=== PATIENT | male | born 1985 | race Caucasian/White ===

== ENCOUNTER 2025-01-18 10:41 | Emergency (ER) | payer OTHER, SELFPAY ==
--- OUTSIDE RECORDS SUMMARY | 2025-01-18 10:44 | XMS_ITS | Encounter Summary ---
Author Organization [facility] Address [address] [place] [address] Care Team Providers Care Bookkeeping Machine Mechanic Name Role Phone Killian Miles PA-C Unavailable [phone] Killian Miles PA-C Primary Care Provider [phone] Yanna Lomeli APRN DRILL DOCTOR Unavailable [phone] Encounter Details Date Type Department Care Team (Late st Contact Info) Description 07/22/2023 [facility] Medical Advice [address] [address] Jacqueline Mckinney Social History Tobacco Use Types Packs/Day Years Used Date Smoking Tobacco: Never Passive Smoke Exposure: Never Smokeless Tobacco: Never Alcohol Use Standard Drinks/Week Comments Yes 0 (1 standard drink = 0.6 oz pur e alcohol) maybe 1-2 x yeear Social Connection and Isolation Panel Answer Date Recorded Frequency of Communication with Friends and Fami ly Not on file 04/17/2023 How often do you get together with friends or re latives? Once a week 04/17/2023 Attends Sabianism Services Not on file 04/17 Active Member of Clubs or Organizations Not on f ile 04/17/2023 Attends Club or Organization Meetings Not on kvng e 04/17/2023 Marital Status Not on file 04/17/2023 PHQ-2 Answer Date Recorded PHQ-2 Score 0 07/22/2023 [facility] Occupat ional [facility] - Occupational Stress Questionnaire Answer Date Recorded Do you feel stress - tense, restless, nervous, or anxious, or unable to sleep at night because your mind is troubled all the time - these days? Patient declined 04/17/2023 Exercise Vital Sign Answer Date Recorde d On average, how many days pe r week do you engage in moderate to strenuous exercise (like a brisk walk)? 0 days 04/17/2023 On average, how many minutes do you engage in exercise at this level? 0 min 04/17/2023 Adolescent Education Answer Date Record ed Getting School Help Needed Not on file 12/22 Food Insecurity Answer Date Recorded Within the past 12 months, d id you worry that your food would run out before you got money to buy more? No 04/17/2023 Within the past 12 months, d id the food you bought just not last and you didn t have money to get more? No 04/17/2023 Housing Stability Answer Date Recorded Do you have housing? (Housin g is defined as stable permanent housing and does not include staying outside in a car, in a tent, in an abandoned building, in an overnight senior care, or couch-surfing.) Yes 04/17/2023 Are you worried about losing your housing? No 04/17/2023 Financial Resource Strain Answer Date R ecorded Within the past 12 months, h ave you or your family members you live with been unable to get utilities (heat, electricity) when it was really needed? No 04/17/2023 Transportation Needs Answer Date Record ed Within the past 12 months, h as lack of transportation kept you from medical appointments, getting your medicines, non-medical meetings or appointments, work, or from getting things that you need? No 04/17/2023 Interpersonal Safety Answer Date Record ed Do you feel physically and e motionally safe where you currently live? Yes 04/20/2023 Within the past 12 months, h ave you been hit, slapped, kicked or otherwise physically hurt by someone? No 04/20/2023 Within the past 12 months, h ave you been humiliated or emotionally abused in other ways by your partner or ex-partner? No 04/20/2023 Sex and Gender Information Value Date Recorded Sex Assigned at Not on file Legal Sex Male 4:[address] OF [address] CLERK Gender Identity Not on file Sexual Orientation Not on file Occupation Industry Job Start Date Job End Date Not on file Not on file Not on file Not on file documented as of this encounter Plan of Treatment Upcoming Encounters Date Type Department Care Team (Late st Contact Info) Description 04/24/2025 4:[address] CLERK Office Visit [facility] [place] [address] [address] Killian Miles PA-C [address] [address] documented as of this encounter Visit Diagnoses Not on filedocumented in this encounter Additional Health Concerns Assessment Noted Time PHQ-9 Depression Total Score: 0 05/01/19 18 7:[address] CLERK documented as of this encounter Care Teams Bookkeeping Machine Mechanic Relationship Specialty Start Date End Date Killian Miles PA-C [address] [address] PCP - General Physician Grain Buyer 03/20/19 Killian Miles PA-C [address] [address] Assigned PCP 04/17/18 Yanna Lomeli APRN DRILL DOCTOR [address] [place] [address], [facility] [address] [place], [place] [address] Assigned Surgical Provider 07/29/23 documented as of this encounter
--- OUTSIDE RECORDS SUMMARY | 2025-01-18 10:44 | XMS_ITS | Encounter Summary ---
Author Organization [facility] Address [address] [place] [address] Care Team Providers Care Deli Cook Name Role Phone Killian Miles PA-C Unavailable [phone] Killian Miles PA-C Primary Care Provider [phone] Dhaval Park PA-C Unavailable [phone] Yanna Lomeli DIRECTOR OF DEVELOPMENT AND MARKETING PLATER HELPER Unavailable [phone] Encounter Details Date Type Department Care Team (Late st Contact Info) Description 07/03/2021 [facility] Medical Advice [facility] [address] [address] Adrienne Julian CMA Social History Tobacco Use Types Packs/Day Years Used Date Smoking Tobacco: Never Smokeless Tobacco: Never Alcohol Use Standard Drinks/Week Comments Yes 0 (1 standard drink = 0.6 oz pur e alcohol) maybe 1-2 x yeear PHQ-2 Answer Date Recorded PHQ-2 Score 0 04/24/2021 Sex and Gender Information Value Date Recorded Sex Assigned at Not on file Legal Sex Male 4:13 AM INSEAMER Gender Identity Not on file Sexual Orientation Not on file Occupation Industry Job Start Date Job End Date Not on file Not on file Not on file Not on file COVID-19 Exposure Response Date Recorded In the last 10 days, have yo u been in contact with someone who was confirmed or suspected to have Coronavirus/COVID-19? No / Unsure 07/03/2021 8:19 AM CDT documented as of this encounter Plan of Treatment Upcoming Encounters Date Type Department Care Team (Late st Contact Info) Description 04/24/2025 4:30 PM INSEAMER Office Visit [facility] [place] [address] [phone] Killian Miles PA-C [address] [address] documented as of this encounter Visit Diagnoses Not on filedocumented in this encounter Additional Health Concerns Infection Onset Date Last Indicated Resolved Time Rule Out COVID-19 02/03/2022 02/03/2022 02/04/2022 12:00 AM INSEAMER Influenza 02/03/2022 02/03/2022 02/10/2022 11:4 0 PM INSEAMER Assessment Noted Time PHQ-9 Depression Total Score: 0 05/01/19 18 7:56 AM INSEAMER documented as of this encounter Care Teams Deli Cook Relationship Specialty Start Date End Date Killian Miles PA-C [address] [address] PCP - General Physician Paper Cup Handle Machine Operator 03/20/19 Killian Miles PA-C [address] [address] Assigned PCP 04/17/18 Dhaval Park PA-C [address] [facility] [address] [place] [address] Assigned Neuroscience Provider 07/13/21 01/15/23 Yanna Lomeli APRN PLATER HELPER [address] [place] [address], [facility] [address] [place] [address] Assigned Surgical Provider 07/29/23 documented as of this encounter
--- OUTSIDE RECORDS SUMMARY | 2025-01-18 10:44 | XMS_ITS | Encounter Summary ---
Author Organization [facility] Address [address] [place] [address] Care Team Providers Care Manager Sterile Name Role Phone Rhys Antunez MD Primary Care Provider [phone] Anastacio Garcia MD Primary Care Provider [phone] Anastacio Garcia MD Unavailable [phone] Killian Miles PA-C Unavailable [phone] Killian Miles PA-C Unavailable [phone] Anastacio Garcia MD Unavailable [phone] Killian Miles PA-C Primary Care Provider [phone] Shaq Frank MD Unavailable Dhaval Park PA-C Unavailable [phone] Yanna Lomeli APRN [facility] Unavailable [phone] Encounter Details Date Type Department Care Team (Late st Contact Info) Description 10/26/2008 Clinic Report (Fur Grader) [address] [phone] Killian Crowley MD NO INFO AVAILABLE 01/09/2022 Social History Tobacco Use Types Packs/Day Years Used Date Smoking Tobacco: Never Assessed Sex and Gender Information Value Date Recorded Sex Assigned at Not on file Legal Sex Male 4:13 AM ADJUNCT BUSINESS INSTRUCTOR Gender Identity Not on file Sexual Orientation Not on file documented as of this encounter Progress Notes * Killian Crowley N - 01/30/2012 7:31 AM CST CC/HPI: 3/4 lump in left axilla. rt is ok. does not feel ill. He presented with swelling. lump under armpit left arm. It is located in a generalized area. The symptom is described as painful. The color is described as flesh-colored. The symptom is sudden in onset. The symptom started yesterday. Episodes last 1 day. Episodes occur in the summer. The frequency of episodes is daily. The complaint is moderate. Current Medication: IBU Oral and Oral. ROS: Constitutional: The patient denied chills, diaphoresis and fatigue. Ears/Nose/Throat/Neck: The patient denied cerumen, nosebleed and cosmetic deformity. Cardiovascular: The patient denied arrhythmia, chest pain/pressure and claudication. Respiratory: The patient denied asthma, chest congestion and chest tightness. Hematologic/Lymphatic: The patient denied abnormal bleeding and bruising, abnormal ecchymoses and anemia. Vital Signs: data collected on 10/26/2008 04:19:29 PM by Dena Lamb weight is 237 pounds 4.00 ounces clothed sitting heart rate is 64 bpm regular blood pressure at Left Arm while Sitting is 126/80 mmHg PE: AXILLA=1.3 CM NODULE SUPERFICIAL DISCUSSED RX, WARM DOAKS. DISUCSSED IF WORSENS NEEDS RECHECK AND DRAINAGE IF ABSCESS DEVELOPS Constitutional: GENERAL APPEARANCE: Overall: well nourished, well developed and in no acute distress. Ears/Nose/Throat: EXTERNAL EAR: Overall: normal appearance; EXTERNAL NOSE: Overall: benign appearance, no masses and non-tender. Musculoskeletal: LEFT UPPER EXTREMITY: Palpation - left shoulder: a normal exam. Dx: 782.2 Localized swelling/mass, superficial Rx: Bactroban 2 % Ointment, TOP, TID, 10 days, for a total of 45 gm, start on October 26, 2008, end on November 04, 2008. Keflex 500 mg Cap, 1 Capsule(s), PO, TID, 10 days, for a total of 30, start on October 26, 2008, end on November 04, 2008. Plan: MEDS ORDERED, WARM SOAKS. RTC IF WORSENS OR OT RESOLVED BY 10-14 DAYS Patient Instructions: None documented in this encounter Plan of Treatment Upcoming Encounters Date Type Department Care Team (Late st Contact Info) Description 04/24/2025 4:30 PM ADJUNCT BUSINESS INSTRUCTOR Office Visit [facility] [address] [place] [address] Killian Miles PA-C [address] [place], [place] [id number] documented as of this encounter Visit Diagnoses Not on filedocumented in this encounter Additional Health Concerns Infection Onset Date Last Indicated Resolved Time Rule Out COVID-19 02/03/2022 02/03/2022 02/04/2022 12:00 AM ADJUNCT BUSINESS INSTRUCTOR Influenza 02/03/2022 02/03/2022 02/10/2022 11:4 0 PM ADJUNCT BUSINESS INSTRUCTOR documented as of this encounter Care Teams Manager Sterile Relationship Specialty Start Date End Date Rhys Antunez MD [address] [place] [address] PCP - General Internal Medicine 12/21/11 05/24/16 Anastacio Garcia MD [address] [place] [address] PCP - General Internal Medicine 05/25/16 03/16/19 Anastacio Garcia MD [address] [place] [address] PCP - Assigned PCP 05/10/16 04/16/18 Killian Miles PA-C [address] [facility] [address] PCP - Assigned PCP 04/17/18 05/10/18 Killian Miles PA-C [address] [address] PCP - General Physician Coffin Maker 03/20/19 Killian Miles PA-C [address] [place] [address] Assigned PCP 04/17/18 Anastacio Garcia MD [address] [facility] [place] [address] Assigned PCP 05/10/16 04/16/18 Shaq Frank MD [address] [facility] [address] [place], [place] [address] Assigned Cancer Care Provider 12/29/19 09/17/20 Dhaval Park PA-C [address] [address] Assigned Neuroscience Provider 07/13/21 01/15/23 Yanna Lomeli APRN GRANITE SANDBLASTER APPRENTICE [address] [facility], [facility] [address] [place] [address] Assigned Surgical Provider 07/29/23 documented as of this encounter
--- OUTSIDE RECORDS SUMMARY | 2025-01-18 10:44 | XMS_ITS | Encounter Summary ---
Author Organization [facility] Address [address] [place] [address] Care Team Providers Care Steel Rule Die Maker Name Role Phone Killian Miles PA-C Unavailable [phone] Killian Miles PA-C Primary Care Provider [phone] Dhaval Park PA-C Unavailable [phone] Yanna Lomeli APRN [facility] Unavailable [phone] Encounter Details Date Type Department Care Team (Late st Contact Info) Description 07/10/2021 [facility] Sleep [address] [address] Dhaval Park PA-C [address] [facility] [address] [place] [address] Social History Tobacco Use Types Packs/Day Years Used Date Smoking Tobacco: Never Smokeless Tobacco: Never Alcohol Use Standard Drinks/Week Comments Yes 0 (1 standard drink = 0.6 oz pur e alcohol) maybe 1-2 x yeear PHQ-2 Answer Date Recorded PHQ-2 Score 0 04/24/2021 Sex and Gender Information Value Date Recorded Sex Assigned at Not on file Legal Sex Male 4:[address] MECHANICAL ENGINEER Gender Identity Not on file Sexual Orientation [...] st Contact Info) Description 04/24/2025 4:[address] MECHANICAL ENGINEER Office Visit [facility] [place] [address] [address] Killian Miles PA-C [address] [place] [address] documented as of this encounter Visit Diagnoses Not on filedocumented in this encounter Additional Health Concerns Infection Onset Date Last Indicated Resolved Time Rule Out COVID-19 02/03/2022 02/03/2022 02/04/2022 12:[address] MECHANICAL ENGINEER Influenza 02/03/2022 02/03/2022 02/10/2022 11:[address] MECHANICAL ENGINEER Assessment Noted Time PHQ-9 Depression Total Score: 0 05/01/19 18 7:[address] MECHANICAL ENGINEER documented as of this encounter Care Teams Steel Rule Die Maker Relationship Specialty Start Date End Date Killian Miles PA-C [address] [address] PCP - General Physician Paint Laboratory Technician 03/20/19 Killian Miles PA-C [address] [address] Assigned PCP 04/17/18 Dhaval Park PA-C [address] [facility] [address] [place] [address] Assigned Neuroscience Provider 07/13/21 01/15/23 Yanna Lomeli APRN POSTAL SORTING OFFICER [address] [place] [address], [facility] [address] [place] [address] Assigned Surgical Provider 07/29/23 documented as of this encounter
--- OUTSIDE RECORDS SUMMARY | 2025-01-18 10:44 | XMS_ITS | Clinical Summary ---
Author Organization [facility] Address [address] [place] [address] Care Team Providers Care Asbestos Removal Worker Name Role Phone Pcp, No Primary Care Provider Unavailabl e Allergies No known active allergies Medications emtricitabine-t enofovir, 200-300 mg, (TRUVADA) 200-300 mg tablet Take 1 tablet by mouth once daily. 0 2 Active hydrocortisone (PROCTOSOL HC) 2.5 % rectal cream Apply 1 g topically to affected area(s) 3 times daily. 1 Tube 2 2 Active Active Problems Problem Noted Date Diagnosed Date External hemorrhoids without mention of complica tion 12/21/2011 Social History Tobacco Use Types Packs/Day Years Used Date Smoking Tobacco: Never Tobacco Cessation:Counseling Given: No Alcohol Use Standard Drinks/Week Comments No 0 (1 standard drink = 0.6 oz pur e alcohol) Sex and Gender Information Value Date Recorded Sex Assigned at Not on file Legal Sex Male 8:39 AM ELECTRONIC SCALE TESTER Gender Identity Not on file Sexual Orientation Not on file Obstetrics History Last Filed Vital Signs Vital Sign Reading Time Taken Comments Blood Pressure 140/82 12/21/2011 5:46 PM CDT Pulse 70 12/21/2011 5:46 PM CDT Temperature - - Respiratory Rate - - Oxygen Saturation - - Inhaled Oxygen Concentration - - Weight 123.3 kg (271 lb 12.8 oz) 12/21/2011 5:46 PM CDT Height - - Body Mass Index - - Plan of Treatment Health Maintenance Due Date Last Done Comments Tetanus booster 11/27/1994 Depression screening for age 12+ 1995 HIV for age 15-65 11/27/1998 BMI (ht and wt on same day) for age 18+ 11/27/2001 Hepatitis C screening for ag e 18-79 11/27/2001 Hepatitis B series for 19+ ( 1 of 3 - 19+ 3-dose series) 11/27/2002 HPV series for age 9-45 (1 - 3-dose SCDM series) 11/27/2010 Lipids for age 35-44 11/27/2018 Influenza Vaccine (#1) 2024 RSV vaccine for adults or (1 - 1-dose 75+ series) 11/27/2058 Pneumococcal series for age 6-49 Aged Out No longer eligible based on patient's age to complete this topic Care Teams Asbestos Removal Worker Relationship Specialty Start Date End Date Pcp, No . PCP - General 12/21/11
--- OUTSIDE RECORDS SUMMARY | 2025-01-18 10:44 | XMS_ITS | Clinical Summary ---
Author Organization [facility] Address [address] [place] [address] Care Team Providers Care Lay Out Worker Name Role Phone Killian Miles PA-C Unavailable [phone] Killian Miles PA-C Primary Care Provider [phone] Yanna Lomeli APRN ADVERTISING STRATEGIST Unavailable [phone] Allergies No known active allergies Medications triamcinolone (KENALOG) 0.1 % external creamIndication s:Eczema, unspecified type Apply topically 2 times daily X 1-2 weeks as needed; take a week break after 2 weeks 80 g 04/24/19 22 Active traZODone (DESYREL) 50 MG tabletIndicatio ns:Sleeping difficulty Take 1-2 tablets (50-100 mg) by mouth at bedtime. 90 tablet 03/28/19 25 Active omeprazole (PRILOSEC) [address] capsuleIndicati ons:Gastroesoph ageal reflux disease, unspecified whether esophagitis present Take 1 capsule (20 mg) by mouth daily. 90 capsule 3 04/20/19 25 Active ZEPBOUND 12.5 MG/0.5ML prefilled penIndications: Morbid obesity (H) INJECT 12.5MG UNDER THE SKIN EVERY 7 DAYS 6 mL 01/06/20 25 Active tirzepatide-Kan ght Management (ZEPBOUND) 12.5 MG/0.5ML prefilled penIndications: Morbid obesity (H) INJECT 12.5MG UNDER THE SKIN EVERY 7 DAYS 6 mL 10/10/19 025 Discontinued Active Problems Problem Noted Date Diagnosed Date Sleeping difficulty 04/20/2024 Left ureteral stone 07/22/2023 History of 2019 novel coronavirus disease (COVID -19) 04/24/2021 Morbid obesity 04/08/2020 Status post knee surgery 03/23/2018 Right knee pain 02/22/2018 Complete tear of right ACL, subsequent encounter 02/22/2018 Pain in thoracic spine 04/30/2015 TMJ (temporomandibular joint syndrome) 5 Vitamin D deficiency 08/07/2013 Overview (12/07/2014): Problem list name updated by automated process. Provider to review CHANDNI (obstructive sleep apnea) 11/11/2012 HTN (hypertension) 05/10/2012 GERD (gastroesophageal reflux disease) 3 Kidney stone 04/01/2012 CARDIOVASCULAR SCREENING; LDL GOAL LESS THAN 160 01/15/2011 Resolved Problems Problem Noted Date Diagnosed Date Resolved Date Aftercare for anterior cruci ate ligament (ACL) repair 04/05/2018 03/16/2019 Overweight 04/29/2016 04/08/2020 Pain in joint, upper arm 03/16/2012 Elbow fracture 03/15/2012 04/28/2012 Overweight (BMI 25.0-29.9) 01/15/2011 0 04/08/2020 Encounters Date Type Department Care Team Description 01/05/[address] [address] Killian Miles PA-C Medication Refill 12/01/2024 6:40 PM CDT Office Visit [facility] [address] [place] [address] Yoana Ragland PA-C Strep throat (Primary Dx); Acute sore throat 12/01/2024 Travel from Last 3 Months Immunizations Immunization Administration Dates Next Due Anthrax 05/17/2005,01/04/2005 COVID-19 Monovalent 18+ (Moderna) 05/09/2020,06/2020 COVID-19 Monovalent Booster 18+ (Moderna) 07/03/2021 Flu, Unspecified 01/04/2005 HEPA 11/15/2004,07/13/2004,08/15/2003 HepB 11/15/2004,07/13/2004,08/15/2003 Influenza (IIV3) PF 01/04/2005 Influenza (intradermal) 04/01/2012 Influenza Vaccine >6 months,quad, PF ,12/09/2020,11/14/2019,2018,01/03/2018,12/31/2016,04/28/2016 Influenza Vaccine IM Ages 6- 35 Months 4 Valent (PF) 01/27/2006 Influenza, Split Virus, Triv alent, Pf (Fluzone\Fluarix) 12/21/2023 MMR (MMRII) 08/15/2003,10/06/1993,05/22/1985 Mantoux Tuberculin Skin Test 10/05/2006,12/17/19 05,07/31/2004 Poliovirus, inactivated (IPV) 08/15/2003 Small Pox (Vaccinia) 01/04/2005 TD,PF 7+ (Tenivac) 07/13/2004 TDAP (Adacel,Boostrix) 06/22/2023 TDAP Vaccine (Adacel) 03/24/2013 Typhoid IM 11/15/2004 Family History Medical History Relation Comments Diabetes Father Neurologic Disorder Father RLS C.A.D. Maternal Grandmother CO at age 6 6 Breast Cancer Mother Diabetes Mother Obesity Mother Respiratory Mother CHANDNI C.A.D. Paternal Grandfather CHF ag e 79 Relation Status Comments Father Alive Maternal Grandfather Alive Maternal Grandmother Mother Alive Paternal Grandfather Paternal Grandmother Alive Sister Alive Social History Tobacco Use Types Packs/Day Years Used Date Smoking Tobacco: Never Passive Smoke Exposure: Never Smokeless Tobacco: Never Tobacco Cessation:Counseling Given: Not Answered Alcohol Use Standard Drinks/Week Comments Yes 0 (1 standard drink = 0.6 oz pur e alcohol) maybe 1-2 x yeear Social Connection and Isolation Panel Answer Date Recorded Frequency of Communication with Friends and Fami ly Not on file 04/16/2024 How often do you get together with friends or re latives? Never 04/16/2024 Attends Pentecostal Services Not on file 04/16 Active Member of Clubs or Organizations Not on f ile 04/16/2024 Attends Club or Organization Meetings Not on kvng e 04/16/2024 Marital Status Not on file 04/16/2024 PHQ-2 Answer Date Recorded PHQ-2 Score 0 04/20/2024 [facility] [place] [facility] Occupat ional [facility] - Occupational Stress Questionnaire Answer Date Recorded Do you feel stress - tense, restless, nervous, or anxious, or unable to sleep at night because your mind is troubled all the time - these days? Patient declined 04/16/2024 Exercise Vital Sign Answer Date Recorde d On average, how many days pe r week do you engage in moderate to strenuous exercise (like a brisk walk)? 0 days 04/16/2024 On average, how many minutes do you engage in exercise at this level? 0 min 04/16/2024 Adolescent Education Answer Date Record ed Getting School Help Needed Not on file 12/22 Food Insecurity Answer Date Recorded Within the past 12 months, d id you worry that your food would run out before you got money to buy more? No 04/16/2024 Within the past 12 months, d id the food you bought just not last and you didn t have money to get more? No 04/16/2024 Housing Stability Answer Date Recorded Do you have housing? (Geovannyin g is defined as stable permanent housing and does not include staying outside in a car, in a tent, in an abandoned building, in an overnight residential, or couch-surfing.) Yes 04/16/2024 Are you worried about losing your housing? No 04/16/2024 Financial Resource Strain Answer Date R ecorded Within the past 12 months, h ave you or your family members you live with been unable to get utilities (heat, electricity) when it was really needed? No 04/16/2024 Transportation Needs Answer Date Record ed Within the past 12 months, h as lack of transportation kept you from medical appointments, getting your medicines, non-medical meetings or appointments, work, or from getting things that you need? 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 Gender Identity Not on file Sexual Orientation Not on file Occupation Industry Job Start Date Job End Date Not on file Not on file Not on file Not on file Last Filed Vital Signs Vital Sign Reading Time Taken Comments Blood Pressure 120/74 12/01/2024 6:39 PM CDT Pulse 77 12/01/2024 6:39 PM CDT Temperature 36.8 C (98.3 F) 12/01/2024 6:39 PM CDT Respiratory Rate 16 12/01/2024 6:39 PM CDT Oxygen Saturation 96% 12/01/2024 6:39 PM CDT Inhaled Oxygen Concentration - - Weight 118.7 kg (261 lb 9.6 oz) 12/01/2024 6:39 PM CDT Height 177.8 cm (5' 10) 12/01/2024 6:39 PM CDT Body Mass Index 37.54 12/01/2024 6:39 PM CDT Plan of Treatment Upcoming Encounters Date Type Department Care Team (Late st Contact Info) Description 04/24/2025 4:30 PM MIDDLE SCHOOL MATH TEACHER Office Visit [facility] [address] [place] [address] Killian Miles PA-C [address] [place] [address] Health Maintenance Due Date Last Done Comments COVID-19 VACCINE ( season) 2024 07/03/2021, 05/09/2020, 04/11/2020 INFLUENZA VACCINE (#1) 2024 , 01/27/2023, 12/09/2020, Additional history exists ANNUAL REVIEW OF HM ORDERS 04/20/202504/20, 04/20/2023, 04/09/2022, Additional history exists BMP 04/20/2025 04/20/2024, 07/06, 04/20/2023, Additional history exists YEARLY PREVENTIVE VISIT 04/20/2025 04/20/19 25, 04/20/2023, 04/09/2022, Additional history exists DIABETES SCREENING 04/20/2027 04/20/2024, 0 04/20/2024, 07/20/2023, Additional history exists ADVANCE CARE PLANNING 04/20/2029 04/20/2024 , 04/20/2023, 03/24/2018 LIPID 04/20/2029 04/20/2024, 04/08, 04/24/2021, Additional history exists DTAP/TDAP/TD VACCINE (4 - Td or Tdap) 06/21/2033 06/22/2023, 03/24/2013, 07/13/2004 ZOSTER VACCINE (1 of 2) 11/27/2033 HEPATITIS B VACCINE Completed 11/15/2004, 07/13/2004, 08/15/2003 HEPATITIS C SCREENING Completed 06/10/2015 HIV SCREENING Completed 06/10/2015 PHQ-2 (once per calendar year) Completed 04/20/2024, 07/22/2023, 04/20/2023, Additional history exists HPV VACCINE (No Doses Required) Completed MENINGITIS VACCINE Aged Out No longer eligible based on patient's age to complete this topic PNEUMOCOCCAL VACCINE: PEDIATRICS (0 to 5 YEARS) AND AT-RISK PATIENTS (6 to 49 YEARS) Aged Out No longer eligible based on patient's age to complete this topic Medical Devices Implanted Type Area Experimental Display Builder Device Identifier Shelf Expiration Date Model / Serial / Lot Imp Scr Arthrex Biocomposite Interference 6x23mm Ar-[id number] Implanted:Qty: 1 on 03/23/2018 by Cheng Kumari MD at [facility] Metallic Hardware/An chor Right: Knee [employer] 11/06/2019 AR-1360C / / [id number] Imp Scr Arthrex Can [id number] Ar-[id number] Implanted:Qty: 1 on 03/23/2018 by Cheng Kumari MD at [facility] Metallic Hardware/An chor Right: Knee [employer] 10/05/2021 AR-1370E / / [id number] Imp Scr Arthrex Can Full Thrd [id number] Ar-[id number] Implanted:Qty: 1 on 03/23/2018 by Cheng Kumari MD at [facility] Metallic Hardware/An chor Right: Knee [employer] 06/05/2022 AR-1380T / / [id number] Imp Scr Arthrex Biocomposite Interference 6x23mm Ar-1360c Implanted:Qty: 1 on 03/23/2018 by Cheng Kumari MD at [facility] Metallic Hardware/An chor Right: Knee [employer] 06/06/2019 AR-1360C / / [id number] Stent Ureteral Polaris Ultra [id number] Implanted:Qty: 1 on 01/11/2018 by Shaq Frank MD at [facility] Stent Right: Ureter [employer] 10/17/2020 [id number] / / [id number] Procedures Procedure Name Priority Date/Time Associated Diagnosis Comments STREPTOCOCCUS A RAPID SCREEN W REFELX TO PCR Routine 12/01/2024 6:46 PM CDT Acute sore throat HEMOGLOBIN A1C Routine 04/20/2024 3:32 PM MIDDLE SCHOOL MATH TEACHER Morbid obesity (H) LIPID REFLEX TO DIRECT LDL PANEL Routine 04/20/2024 3:32 PM MIDDLE SCHOOL MATH TEACHER Morbid obesity (H) COMPREHENSIVE METABOLIC PANEL Routine 04/20/2024 3:32 PM MIDDLE SCHOOL MATH TEACHER Morbid obesity (H) from Last 3 Months or Most Recently Relevant to Health Maintenance Results * (ABNORMAL) Streptococcus A Rapid Screen w/Reflex to PCR - Clinic Collect (12/01/2024 6:46 PM CDT) Group A Strep antigen Positive(A ) Negative 12/01/2024 6:56 PM CDT [facility] Swab STRUCTURE OF ANTERIOR REGION OF NECK / Unknown Non-blood Collection / Unknown 12/01/2024 6:46 PM CDT 12/01/2024 6:49 PM CDT Khristopher M Urbano PA-C LAB - MICRO GENERAL ORD ERABLES Final Result Performing Organization Address City/[facility]/ZIP Co de Phone Number [facility] [address] [facility] Lab (no room number, 1st floor of clinic) [place] [address], [facility] * (ABNORMAL) Lipid panel reflex to direct LDL Fasting (04/20/2024 3:32 PM MIDDLE SCHOOL MATH TEACHER) Cholesterol 173 <200 mg/dL 04/21/2024 2:11 PM MIDDLE SCHOOL MATH TEACHER [facility] Triglycerides 176(H) <150 mg/dL 04/21/2024 2:11 PM MIDDLE SCHOOL MATH TEACHER [facility] Direct Measure HDL 28(L) >=40 mg/dL 04/21/2024 2:11 PM MIDDLE SCHOOL MATH TEACHER [facility] LDL Cholesterol Calculated 110(H) <100 mg/dL 04/21/2024 2:11 PM MIDDLE SCHOOL MATH TEACHER [facility] Non HDL Cholesterol 145(H) <130 mg/dL 04/21/2024 2:11 PM MIDDLE SCHOOL MATH TEACHER [facility] Patient Fasting > 8hrs? Yes 04/21/2024 2:11 PM MIDDLE SCHOOL MATH TEACHER [facility] Blood BLOOD SPECIMEN / Unknown Venipuncture / Unknown 04/20/2024 3:32 PM MIDDLE SCHOOL MATH TEACHER 04/20/2024 3:32 PM MIDDLE SCHOOL MATH TEACHER Narrative [facility] - 04/21/2024 2:11 PM MIDDLE SCHOOL MATH TEACHER Cholesterol Desirable: < 200 mg/dL Borderline High: 200 - 239 mg/dL High: >= 240 mg/dL Triglycerides Normal: < 150 mg/dL Borderline High: 150 - 199 mg/dL High: 200-499 mg/dL Very High: >= 500 mg/dL Direct Measure HDL Female: >= 50 mg/dL Male: >= 40 mg/dL LDL Cholesterol Desirable: < 100 mg/dL Above Desirable: 100 - 129 mg/dL Borderline High: 130 - 159 mg/dL High: 160 - 189 mg/dL Very High: >= 190 mg/dL Non HDL Cholesterol Desirable: < 130 mg/dL Above Desirable: 130 - 159 mg/dL Borderline High: 160 - 189 mg/dL High: 190 - 219 mg/dL Very High: >= 220 mg/dL Killian Miles PA-C LAB - BLOOD ORDERABLES Final R esult [facility] [address] [place] [address], [place] [facility] [address] [facility], [address] [place] [address], [facility] * Hemoglobin A1c (04/20/2024 3:32 PM MIDDLE SCHOOL MATH TEACHER) Estimated Average Glucose 105 <117 mg/dL 04/20/2024 3:37 PM MIDDLE SCHOOL MATH TEACHER LABORATORY Hemoglobin A1C 5.3 0.0 - 5.6 % 04/20/2024 3:37 PM MIDDLE SCHOOL MATH TEACHER LABORATORY Comment: Normal <5.7% Prediabetes 5.7-6.4% Diabetes 6.5% or higher Note: Adopted from ADA consensus guidelines. Blood BLOOD SPECIMEN / Unknown Venipuncture / Unknown 04/20/2024 3:32 PM MIDDLE SCHOOL MATH TEACHER 04/20/2024 3:32 PM MIDDLE SCHOOL MATH TEACHER Killian Miles PA-C LAB - BLOOD ORDERABLES Final R esult [facility]ORATORY [facility] [place] [facility] [address] [facility] Lab (no room number, 1st floor of clinic) [place] [address], [facility] * (ABNORMAL) Comprehensive metabolic panel (BMP + Alb, Alk Phos, ALT, AST, Total. Bili, TP) (04/20/2024 3:32 PM MIDDLE SCHOOL MATH TEACHER) Sodium 141 135 - 145 mmol/L 04/21/2024 2:11 PM MIDDLE SCHOOL MATH TEACHER [facility] Potassium 4.1 3.4 - 5.3 mmol/L 04/21/2024 2:11 PM MIDDLE SCHOOL MATH TEACHER [facility] Carbon Dioxide (CO2) 25 22 - 29 mmol/L 04/21/2024 2:11 PM MIDDLE SCHOOL MATH TEACHER [facility] Anion Gap 11 7 - 15 mmol/L 04/21/2024 2:11 PM MIDDLE SCHOOL MATH TEACHER [facility] Urea Nitrogen 20.1(H) 6.0 - 20.0 mg/dL 04/21/2024 2:11 PM MIDDLE SCHOOL MATH TEACHER [facility] Creatinine 0.86 0.67 - 1.17 mg/dL 04/21/2024 2:11 PM MIDDLE SCHOOL MATH TEACHER [facility] GFR Estimate >90 >60 mL/min/1.7 3m2 04/21/2024 2:11 PM MIDDLE SCHOOL MATH TEACHER [facility] Comment:eGFR calculated us2020 CKD-EPI equation. Calcium 9.2 8.8 - 10.4 mg/dL 04/21/2024 2:11 PM MIDDLE SCHOOL MATH TEACHER [facility] Chloride 105 98 - 107 mmol/L 04/21/2024 2:11 PM MIDDLE SCHOOL MATH TEACHER [facility] Glucose 91 70 - 99 mg/dL 04/21/2024 2:11 PM MIDDLE SCHOOL MATH TEACHER [facility] Alkaline Phosphatase 76 40 - 150 U/L 04/21/2024 2:11 PM MIDDLE SCHOOL MATH TEACHER [facility] AST 17 0 - 45 U/L 04/21/2024 2:11 PM MIDDLE SCHOOL MATH TEACHER [facility] ALT 18 0 - 70 U/L 04/21/2024 2:11 PM MIDDLE SCHOOL MATH TEACHER [facility] Protein Total 6.8 6.4 - 8.3 g/dL 04/21/2024 2:11 PM MIDDLE SCHOOL MATH TEACHER [facility] Albumin 4.2 3.5 - 5.2 g/dL 04/21/2024 2:11 PM MIDDLE SCHOOL MATH TEACHER [facility] Bilirubin Total 0.5 <=1.2 mg/dL 04/21/2024 2:11 PM MIDDLE SCHOOL MATH TEACHER [facility] Patient Fasting > 8hrs? Yes 04/21/2024 2:11 PM MIDDLE SCHOOL MATH TEACHER [facility] Blood BLOOD SPECIMEN / Unknown Venipuncture / Unknown 04/20/2024 3:32 PM MIDDLE SCHOOL MATH TEACHER 04/20/2024 3:32 PM MIDDLE SCHOOL MATH TEACHER us Killian Miles PA-C LAB - BLOOD ORDERABLES Final R esult [facility] [address] [place] [address], [facility] [address] [facility] [place] [address], [facility] from Last 3 Months or Most Recently Relevant to Health Maintenance Insurance MEDICA CHOICE MEDICA CHOICE Advance Directives For more information, please contact: [phone] * Full Code (Latest Code Status on File) Date Activated Date Inactivated Comments 03/23/2018 3:01 PM 03/25/2018 3:51 PM Question Answer Comments Code status determined by: Discussion with jenni nt/legal decision maker Care Teams Lay Out Worker Relationship Specialty Start Date End Date Killian Miles PA-C [address] [place] [address] PCP - General Physician Marketing Outreach Coordinator 03/20/19 Killian Miles PA-C [address] [place] [address] Assigned PCP 04/17/18 Yanna Lomeli APRN ADVERTISING STRATEGIST [address] [place] [address], [facility] [address] [place] [address] Assigned Surgical Provider 07/29/23
--- OUTSIDE RECORDS SUMMARY | 2025-01-18 10:44 | XMS_ITS | Encounter Summary ---
Author Organization [facility] Address [address] [place] [address] Care Team Providers Care Field Marketer Name Role Phone Anastacio Garcia MD Primary Care Provider [phone] Killian Miles PA-C Unavailable [phone] Killian Miles PA-C Primary Care Provider [phone] Shaq Frank MD Unavailable Dhaval Park-C Unavailable [phone] Yanna Lomeli APRN CUSTOMER SUCCESS ASSOCIATE Unavailable Reason for Visit * Reason Comments Medication Refill Encounter Details Date Type Department Care Team (Late st Contact Info) Description 03/09/[address] [place] [address] Anastacio Garcia MD [address] [facility] [place] [id number] Medication Refill Social History Tobacco Use Types Packs/Day Years Used Date Smoking Tobacco: Never Smokeless Tobacco: Never Alcohol Use Standard Drinks/Week Comments Yes 0 (1 standard drink = 0.6 oz pur e alcohol) maybe 1-2 x yeear PHQ-2 Answer Date Recorded PHQ-2 Score 0 03/15/2018 Sex and Gender Information Value Date Recorded Sex Assigned at Not on file Legal Sex Male 4:13 AM COUNTER HAND Gender Identity Not on file Sexual Orientation Not on file Occupation Industry Job Start Date Job End Date Not on file Not on file Not on file Not on file documented as of this encounter Plan of Treatment Upcoming Encounters Date Type Department Care Team (Late st Contact Info) Description 04/24/2025 4:30 PM COUNTER HAND Office Visit [facility] [place] [address] [place] [address] Killian Miles PA-C [address] [place] [address] documented as of this encounter Visit Diagnoses Diagnosis GERD (gastroesophageal reflux disease) Esophageal reflux documented in this encounter Additional Health Concerns Infection Onset Date Last Indicated Resolved Time Rule Out COVID-19 02/03/2022 02/03/2022 02/04/2022 12:00 AM COUNTER HAND Influenza 02/03/2022 02/03/2022 02/10/2022 11:4 0 PM COUNTER HAND Assessment Noted Time PHQ-9 Depression Total Score: 0 05/01/19 18 7:56 AM COUNTER HAND documented as of this encounter Care Teams Field Marketer Relationship Specialty Start Date End Date Anastacio Garcia MD PCP - General Internal Medicine 05/25/16 03/16/19 Killian Mlies PA-C [address] [place] [address] PCP - General Physician Usability Engineer 03/20/19 Killian Miles PA-C [address] [place] [address] Assigned PCP 04/17/18 Shaq Frank MD [address] [place] [address] Assigned Cancer Care Provider 12/29/19 09/17/20 Dhaval Park PA-C [address] [facility] [address] [place] [address] Assigned Neuroscience Provider 07/13/21 01/15/23 Yanna Lomeli, PEDIATRICS HOSPITALIST CUSTOMER SUCCESS ASSOCIATE [address] [place] [address], [facility] [address] [place] [address] Assigned Surgical Provider 07/29/23 documented as of this encounter
--- OUTSIDE RECORDS SUMMARY | 2025-01-18 10:44 | XMS_ITS | Encounter Summary ---
Author Organization [place] Address [address] [place] [address] Care Team Providers Care Speed Winder Name Role Phone Rhys Antunez MD Primary Care Provider [phone] Anastacio Garcia MD Primary Care Provider [phone] Anastacio Garcia MD Unavailable [phone] Killian Miles PA-C Unavailable [phone] Killian Miles PA-C Unavailable [phone] Anastacio Garcia MD Unavailable [phone] Killian Miles PA-C Primary Care Provider [phone] Shaq Frank MD Unavailable Dhaval Park PA-C Unavailable [phone] aYnna Lomeli APRN [facility] Unavailable [phone] Encounter Details Date Type Department Care Team (Late st Contact Info) Description 10/08/2010 Clinic Report (Clinical Educator) [address] [phone] Killian Crowley MD NO INFO AVAILABLE 01/09/2022 Social History Tobacco Use Types Packs/Day Years Used Date Smoking Tobacco: Never Assessed Sex and Gender Information Value Date Recorded Sex Assigned at Not on file Legal Sex Male 4:13 AM TIME STUDY STATISTICIAN Gender Identity Not on file Sexual Orientation Not on file documented as of this encounter Progress Notes * Killian Crowley - 01/29/2012 10:21 PM CST CC/HPI: He presented with rash. It is located on the hands. It is located on both hands. The symptom is described as new. The color is described as red. The symptom is sudden in onset. The symptom started 1 month ago. The complaint is moderate. Patient denies dizziness, eye irritation and fatigue. Current Medication: Vitamin D 5,000 unit Tab, 1 Tablet(s), PO, daily, 30 days, 11 refills, for a total of 30, start on March 09, 2010 and end on March 03, 2011. IBU Oral and Oral. ROS: HANDS GET LITTLE DOTS AND ITCH, SOME CLEAR FLUID. Constitutional: The patient denied chills, diaphoresis and fatigue. Dermatologic: The patient complained of skin lesion but denied acne, alopecia and cellulitis. Vital Signs: data collected on 10/08/2010 11:32:48 AM by Dena Lamb weight is 265 pounds 8.00 ounces clothed w/ shoes sitting heart rate is 68 bpm regular blood pressure at Left Arm while Sitting is 120/84 mmHg PE: XEROSIS. SEVERAL TINY VESICLES. Constitutional: GENERAL APPEARANCE: Overall: well nourished, well developed and in no acute distress. Ears/Nose/Throat: EXTERNAL EAR: Overall: normal appearance; EXTERNAL NOSE: Overall: benign appearance, no masses and non-tender. Integument: INSPECTION OF SKIN: Location: left hand and right hand. Dx: (692.9) - C - Dermatitis / eczema Rx: Triamcinolone Acetonide 0.1 % Topical Cream, 1 , TOP, BID PRN, 30 days, 6 refills, for a total of 45 GM, start on October 08, 2010, end on May 05, 2011. Plan: DISUCSSED NOT USING DRYING AGENTS. DISCUSSED USE OF TRIAMCINOLONE CREAM. He was given this form: 'Patient Medication Summary'. Patient Instructions: None documented in this encounter Plan of Treatment Upcoming Encounters Date Type Department Care Team (Late st Contact Info) Description 04/24/2025 4:30 PM TIME STUDY STATISTICIAN [facility] [address] [phone] Killian Miles PA-C [address] [id number] documented as of this encounter Visit Diagnoses Not on filedocumented in this encounter Additional Health Concerns Infection Onset Date Last Indicated Resolved Time Rule Out COVID-19 02/03/2022 02/03/2022 02/04/2022 12:00 AM TIME STUDY STATISTICIAN Influenza 02/03/2022 02/03/2022 02/10/2022 11:4 0 PM TIME STUDY STATISTICIAN documented as of this encounter Care Teams Speed Winder Relationship Specialty Start Date End Date Rhys Antunez MD [address] [place] [address] PCP - General Internal Medicine 12/21/11 05/24/16 Anastacio Garcia MD [address] [place] [address] PCP - General Internal Medicine 05/25/16 03/16/19 Anastacio Garcia MD [address] [place] [address] PCP - Assigned PCP 05/10/16 04/16/18 Killian Miles PA-C [address] [address] PCP - Assigned PCP 04/17/18 05/10/18 Killian Miles PA-C [address] [address] PCP - General Physician Coal Trimmer 03/20/19 Killian Miles PA-C [address] [place] [address] Assigned PCP 04/17/18 Anastacio Garcia MD [address] [facility] [place] [address] Assigned PCP 05/10/16 04/16/18 Shaq Frank MD [address] [facility] [address] [place], [place] [address] Assigned Cancer Care Provider 12/29/19 09/17/20 Dhaval Park PA-C [address] [facility] [address] [place] [address] Assigned Neuroscience Provider 07/13/21 01/15/23 Yanna Lomeli APRN INSTRUCTOR INDUSTRIAL DESIGN [address] [facility] [address] [place], [place] [address] Assigned Surgical Provider 07/29/23 documented as of this encounter
--- OUTSIDE RECORDS SUMMARY | 2025-01-18 10:44 | XMS_ITS | Clinical Summary ---
Author Organization [facility] Address [address] [place] [address] Care Team Providers Care Elevator Mechanic Name Role Phone Benigno Cool MD Primary Care Provider [phone] Source Comments You are receiving this document as you are listed as the primary care provider,follow-up provider, or the patient has been referred to you for consultation.This is in compliance with the Medicare and[facility], Inccaid EHR Incentive Program,which states Providers who transition their patient to another setting of careor provider of care or refers their patient to another provider of care shouldprovide summary care record for each transition of care or referral. [facility] Allergies No known active allergies Medications GANESH ANKLE BRACE MISC 1 1 0 02/18/2007 Active omeprazole (PRILOSEC) 20 MG capsule Take 20 mg by mouth daily. Take 1 hour before a meal. Active Active Problems Problem Noted Date Diagnosed Date Injury, other and unspecified, knee, leg, ankle, and foot 02/18/2007 Immunizations Immunization Administration Dates Next Due Flu Vac Preserv Free (3+yrs) 01/04/2005 HepA-HepB ([place], 18+ yrs) 11/15/2004,07/14/19 05,08/15/2003 IPV (Polio) 08/15/2003 MMR 08/15/2003 TB Skin Test (PPD) 10/05/2006,12/16/2004, 005 Td 07/13/2004 Typhoid (Typhim Vi, IM) 11/15/2004 Unlisted Immunization 01/30/2005,01/04/2005,12/08,08/15/2003 Social History Tobacco Use Types Packs/Day Years Used Date Smoking Tobacco: Never Smokeless Tobacco: Never Alcohol Use Standard Drinks/Week Comments Not Asked 0 (1 standard drink = 0.6 oz pur e alcohol) Sex and Gender Information Value Date Recorded Sex Assigned at Not on file Legal Sex Male 5:49 AM CDT Gender Identity Not on file Sexual Orientation Not on file Last Filed Vital Signs Vital Sign Reading Time Taken Comments Blood Pressure 124/68 12/27/2007 9:07 AM CDT Pulse 56 12/27/2007 9:07 AM CDT Temperature - - Respiratory Rate - - Oxygen Saturation 96% 10/13/2006 8:20 AM CDT Inhaled Oxygen Concentration - - Weight 136.1 kg (300 lb) 02/17/2018 3:13 PM SQL REPORT DEVELOPER Height 177.8 cm (5' 10) 02/17/2018 3:13 PM SQL REPORT DEVELOPER Body Mass Index 43.05 02/17/2018 3:13 PM SQL REPORT DEVELOPER Plan of Treatment Health Maintenance Due Date Last Done Comments Hep C Screening (Preventive Services) 1983 HIV Screening (Preventive Services) 1999 Adult Preventive Visit 11/27/2001 HepA Vaccine (4 of 4 - Hep A Twinrix risk 4-dose series) 08/14/2004 11/15/2004, 11/15/2004, 07/13/2004, Additional history exists HPV Vaccine (1 - 3-dose SCDM series) 11/27/2010 Cholesterol 11/27/2018 10/13/2006 DTaP/Tdap/Td Vaccine (2 - Tdap) 03/24/2023 03/24/2013, 07/13/2004 COVID-19 Vaccine (4 - season) 2024 07/03/2021, 05/09/2020, 04/11/2020 Influenza Vaccine (#1) 2024 , 11/14/2019, 02/14/2019, Additional history exists Zoster/Shingles Vaccine (1 of 2) 11/27/2033 HepB Vaccine Completed 11/15/2004, 10/2004, 08/15/2003 Hib Vaccine Aged Out No longer eligi ble based on patient's age to complete this topic MCV4 Vaccine Aged Out No longer eligi ble based on patient's age to complete this topic Meningococcal B Vaccine Aged Out No l onger eligible based on patient's age to complete this topic Pneumococcal Vaccine Aged Out No long er eligible based on patient's age to complete this topic Procedures Procedure Name Priority Date/Time Associated Diagnosis Comments CHOLESTEROL (TOTAL) Routine 10/13/2006 8 :16 AM CDT Health Examination of Defined Subpopulation from Last 3 Months or Most Recently Relevant to Health Maintenance Results * (ABNORMAL) CHOLESTEROL (TOTAL) (10/13/2006 8:16 AM CDT) Cholesterol 222(H) <200 mg/dl [facility] Comment: Result should not be interpreted without the patient's history of cardiovascular risk factors. 10/13/2006 8:16 AM CDT 10/13/2006 8:20 AM CDT us Lakeisha Cool MD LAB_1 Final Resul t [facility] [address] [address] from Last 3 Months or Most Recently Relevant to Health Maintenance Insurance [place] [address] [facility] [place] [address] [address] WORK COMP [facility] Care Teams Elevator Mechanic Relationship Specialty Start Date End Date Benigno Cool MD [address] [place] [address] PCP - General 06/10/10
--- OUTSIDE RECORDS SUMMARY | 2025-01-18 10:44 | XMS_ITS | Encounter Summary ---
Author Organization [place] Address [address] [place] [address] Care Team Providers Care Fishing Reel Assembler Name Role Phone Rhys Antunez MD Primary Care Provider [phone] Anastacio Garcia MD Primary Care Provider [phone] Anastacio Garcia MD Unavailable [phone] Killian Miles PA-C Unavailable [phone] Killian Miles PA-C Unavailable [phone] Anastacio Garcia MD Unavailable [phone] Killian Miles PA-C Primary Care Provider [phone] Shaq Frank MD Unavailable Dhaval Park PA-C Unavailable [phone] Yanna Lomeli APRN [facility] Unavailable [phone] Encounter Details Date Type Department Care Team (Late st Contact Info) Description 03/09/2010 Clinic Report (Environmental Compliance Specialist) [address] [phone] Killian Crowley MD NO INFO AVAILABLE 01/09/2022 Social History Tobacco Use Types Packs/Day Years Used Date Smoking Tobacco: Never Assessed Sex and Gender Information Value Date Recorded Sex Assigned at Not on file Legal Sex Male 4:13 AM NUCLEAR REACTOR ENGINEER Gender Identity Not on file Sexual Orientation Not on file documented as of this encounter Progress Notes * Killian Crowley - 01/30/2012 1:02 AM CST CC/HPI: None Current Medication: IBU Oral and Oral. Bactroban 2 % Ointment, TOP, TID, 10 days, for a total of 45 gm, start on March 03, 2010 and end on March 12, 2010. ROS: None PE: None Dx: None Rx: Vitamin D 5,000 unit Tab, 1 Tablet(s), PO, daily, 30 days, 11 refills, for a total of 30, start on March 09, 2010, end on March 03, 2011. Plan: None Patient Instructions: None EAR REACTOR ENGINEER documented in this encounter Plan of Treatment Upcoming Encounters Date Type Department Care Team (Late st Contact Info) Description 04/24/2025 4:30 PM NUCLEAR REACTOR ENGINEER Office Visit [facility] [address] [place] [address] Killian Miles PA-C [address] [place] [address] documented as of this encounter Visit Diagnoses Not on filedocumented in this encounter Additional Health Concerns Infection Onset Date Last Indicated Resolved Time Rule Out COVID-19 02/03/2022 02/03/2022 02/04/2022 12:00 AM NUCLEAR REACTOR ENGINEER Influenza 02/03/2022 02/03/2022 02/10/2022 11:4 0 PM NUCLEAR REACTOR ENGINEER documented as of this encounter Care Teams Fishing Reel Assembler Relationship Specialty Start Date End Date Rhys Antunez MD [address] [place], [place] [address] PCP - General Internal Medicine 12/21/11 05/24/16 Anastacio Garcia MD [address] [place] [address] PCP - General Internal Medicine 05/25/16 03/16/19 Anastacio Garcia MD [address] [place] [address] PCP - Assigned PCP 05/10/16 04/16/18 Killian Miles PA-C [address] [place] [address] PCP - Assigned PCP 04/17/18 05/10/18 Killian Miles PA-C [address] [place] [address] PCP - General Physician Multi Purpose Machine Operator 03/20/19 Killian Miles PA-C [address] [place] [address] Assigned PCP 04/17/18 Anastacio Garcia MD [address] [place] [address] Assigned PCP 05/10/16 04/16/18 Shaq Frank MD 420 [facility] [address] [place] [address] Assigned Cancer Care Provider 12/29/19 09/17/20 Dhaval Park PA-C [address] [place] [address] [address] [address] Assigned Neuroscience Provider 07/13/21 01/15/23 Yanna Lomeli APRN TAPPING MACHINE OPERATOR 420 [facility] [address] [place] [address] Assigned Surgical Provider 07/29/23 documented as of this encounter
--- OUTSIDE RECORDS SUMMARY | 2025-01-18 10:44 | XMS_ITS | Encounter Summary ---
Author Organization [place] Address [address] [place] [address] Care Team Providers Care Nail Puller Name Role Phone Killian Miles PA-C Unavailable [phone] Killian Miles PA-C Primary Care Provider [phone] Yanna Lomeli APRN [employer] Unavailable [phone] Encounter Details Date Type Department Care Team (Late st Contact Info) Description 07/07/2023 MyC Medical Advice [facility] [address] [address] Amisha Arrieta, RN Social History Tobacco Use Types Packs/Day Years [...] re latives? Once a week 04/17/2023 Attends Congregational Services Not on file 04/17 Active Member of Clubs or Organizations Not on f ile 04/17/2023 Attends Club or Organization Meetings Not on kvng e 04/17/2023 Marital Status Not on file 04/17/2023 PHQ-2 Answer Date Recorded PHQ-2 Score 0 04/20/2023 [facility] [place] of Occupat ional Health - Occupational Stress [...] in an abandoned building, in an overnight longterm, or couch-surfing.) Yes 04/17/2023 Are you worried [...] on file Legal Sex Male 4:13 AM SOCIAL WORKER PSYCHIATRIC Gender Identity Not on file Sexual Orientation Not on file Occupation Industry Job Start Date Job End Date Not on file Not on file Not on file Not on file documented as of this encounter Plan of Treatment Upcoming Encounters Date Type Department Care Team (Late st Contact Info) Description 04/24/2025 4:30 PM SOCIAL WORKER PSYCHIATRIC Office Visit [facility] [address] [address] Killian Miles PA-C [address] [address] documented as of this encounter Visit Diagnoses Not on filedocumented in this encounter Additional Health Concerns Assessment Noted Time PHQ-9 Depression Total Score: 0 05/01/19 18 7:56 AM SOCIAL WORKER PSYCHIATRIC documented as of this encounter Care Teams Nail Puller Relationship Specialty Start Date End Date Killian Miles PA-C [address] [address] PCP - General Physician [employer] 03/20/19 Killian Miles PA-C [address] [address] Assigned PCP 04/17/18 Yanna Lomeli APRN SEC[employer]ITY [employer] [address] [place] [address], [facility] [address] [place], [place] [address] Assigned Surgical Provider 07/29/23 documented as of this encounter
--- OUTSIDE RECORDS SUMMARY | 2025-01-18 10:44 | XMS_ITS | Encounter Summary ---
Author Organization [place] Address [address] [place] [address] Care Team Providers Care Design Drafter Name Role Phone Rhys Antunez MD Primary Care Provider [phone] Anastacio Garcia MD Primary Care Provider [phone] Anastacio Garcia MD Unavailable [phone] Killian Miles PA-C Unavailable [phone] Killian Miles PA-C Unavailable [phone] Anastacio Garcia MD Unavailable [phone] Killian Miles PA-C Primary Care Provider [phone] Shaq Frank MD Unavailable Dhaval Park PA-C Unavailable [phone] Yanna Lomeli APRN [facility] Unavailable [phone] Encounter Details Date Type Department Care Team (Late st Contact Info) Description 02/22/2007 Clinic Report (Softball Core Molder) [address] [place] [address] Oziel Centeno MD [address] [place] [address] Social History Tobacco Use Types Packs/Day Years Used Date Smoking Tobacco: Never Assessed Sex and Gender Information Value Date Recorded Sex Assigned at Not on file Legal Sex Male 4:13 AM DATA COMMUNICATIONS ENGINEER Gender Identity Not on file Sexual Orientation Not on file documented as of this encounter Progress Notes * Oziel Centeno MD - 01/30/2012 3:11 PM CST CC/HPI: office visit with Dr. PRESCOTT - patient injured LT. ankle today while playing basketball. Had x-[facility] done on wednesday at [facility]. They xrayd at that time and said it looked ok. Patient still having severe pain, has crutches. He presented with ankle pain. It is located on the left. The symptom is described as throbbing and acute. The symptom is sudden in onset. The symptom started _ days ago and DOI: 02/18/07. The complaint allows weight bearing activity. Mechanism of injury includes ankle inversion. Sports participation is basketball. The assistive devices include crutches. Initial therapy includes compression, elevation, ice and NSAIDs. Current Medication: IBU Oral and Oral. ROS: None Vital Signs: data collected on 02/22/2007 02:20:39 PM by Tracey Oates weight is 223 pounds clothed sitting heart rate is 60 bpm regular blood pressure at Right Arm while Sitting is 118/60 mmHg PE: Constitutional: GENERAL APPEARANCE: Overall: well nourished, well developed and in no acute distress. Musculoskeletal: LEFT LOWER EXTREMITY: Overall: left knee benign Inspection - left ankle: swelling @ lateral malleolus Palpation - left ankle: tender @ ankle ROM - left ankle: pain with plantar flexion Stability - left ankle: ligamentous laxity - lateral Muscle Strength/Tone - left ankle: a normal exam Inspection - left foot: swelling Palpation - left foot: tender ROM - left foot: a normal exam; Stability - left foot: a normal exam. Integument: INSPECTION OF SKIN: Overall: no rash, lesions. Neurologic: SENSATION: Overall: intact to touch. Dx: 719.47 Ankle pain 845.00 Sprain/strain: ankle, unspec. Rx: None Plan: re assessment, and referral to PT if necessary A return visit is indicated in 3weeks. Patient Instructions: None COMMUNICATIONS ENGINEER documented in this encounter Plan of Treatment Upcoming Encounters Date Type Department Care Team (Late st Contact Info) Description 04/24/2025 4:30 PM DATA COMMUNICATIONS ENGINEER Office Visit [facility] [address] [phone] Killian Miles PA-C [address] [address] documented as of this encounter Visit Diagnoses Not on filedocumented in this encounter Additional Health Concerns Infection Onset Date Last Indicated Resolved Time Rule Out COVID-19 02/03/2022 02/03/2022 02/04/2022 12:00 AM DATA COMMUNICATIONS ENGINEER Influenza 02/03/2022 02/03/2022 02/10/2022 11:4 0 PM DATA COMMUNICATIONS ENGINEER documented as of this encounter Care Teams Design Drafter Relationship Specialty Start Date End Date Rhys Antunez MD [address] [place] [address] PCP - General Internal Medicine 12/21/11 05/24/16 Anastacio Garcia MD [address] [place] [address] PCP - General Internal Medicine 05/25/16 03/16/19 Anastacio Garcia MD [address] [place] [address] PCP - Assigned PCP 05/10/16 04/16/18 Killian Miles PA-C [address] [address] PCP - Assigned PCP 04/17/18 05/10/18 Killian Miles PA-C [address] [address] PCP - General Physician Cell Coverer 03/20/19 Killian Miles PA-C [address] [place] [address] Assigned PCP 04/17/18 Anastacio Garcia MD [address] [facility] [address] Assigned PCP 05/10/16 04/16/18 Shaq Frank MD 420 [facility] [address] [place], [place] [address] Assigned Cancer Care Provider 12/29/19 09/17/20 Dhaval Park PA-C [address] [place] [address] Assigned Neuroscience Provider 07/13/21 01/15/23 Yanna Lomeli APRN PERSONAL COMPANION 420 [facility] [address] [place], [place] [address] Assigned Surgical Provider 07/29/23 documented as of this encounter
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
--- OUTSIDE RECORDS SUMMARY | 2025-01-18 10:44 | XMS_ITS | Encounter Summary ---
Author Organization [place] Address [address] [place] [address] Care Team Providers Care Bunk Assembler Name Role Phone Rhys Antunez MD Primary Care Provider [phone] Anastacio Garcia MD Primary Care Provider [phone] Anastacio Garcia MD Unavailable [phone] Killian Miles PA-C Unavailable [phone] Killian Miles PA-C Unavailable [phone] Anastacio Garcia MD Unavailable [phone] Killian Miles PA-C Primary Care Provider [phone] Shaq Frank MD Unavailable Dhaval Park PA-C Unavailable [phone] Yanna Lomeli APRN [facility] Unavailable [phone] Encounter Details Date Type Department Care Team (Late st Contact Info) Description 03/03/2010 Clinic Report (Sewer Contractor) [address] [phone] Killian Crowley MD NO INFO AVAILABLE 01/09/2022 Social History Tobacco Use Types Packs/Day Years Used Date Smoking Tobacco: Never Assessed Sex and Gender Information Value Date Recorded Sex Assigned at Not on file Legal Sex Male 4:13 AM GOSPEL SINGER Gender Identity Not on file Sexual Orientation Not on file documented as of this encounter Progress Notes * Killian Crowley N - 01/30/2012 1:06 AM CST CC/HPI: FOOT- HAD INFECTION SOME DRAINAGE. NOW BETTER FOR 2 WEEKS. LOOSING TOENAIL.LEFT BIG TOE. ALSO RASH IN EARLY FEBRUARY. LASTED 3 WEEKS ON ARMS HANDS AND LEGS. 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 He presented for well man exam (18-39 years). The patient is sexually active and in a generalized area. Current contraception practice includes partner taking oral contraceptives. Urinary complaints include none. Lifestyle is remarkable for regular seatbelt use, family supportive of relationship, satisfactory work experience, normal sleep patterns, normal amount of stress and satisfactory marriage/partner relationship. Health maintenance issues include overweight. Body Mass Index is severely obese BMI between 35 and 39.9. Cardiovascular risk factors include diabetes mellitus. Reproductive development history shows normal development, normal puberty and normal genitalia. Patient received health guidance in tobacco, drugs and alcohol avoidance. The patient received none, up to date. When asked about alcoholic beverage use, patient responds no, screening is complete. In addition, he presented with foot pain. It is located on the left. The symptom is described as acute. The patient also presented with rash. The patient is sexually active and in a generalized area. The symptom is described as acute. Current Medication: IBU Oral and Oral. ROS: GLASSES NO CONTACTS. SOME HEARING LOSS. WAS IN [place] IN [employer]. NEVER SMOKED. VERY RARE ALCOHOL- ONE DRINK. HAS SOME CAFFEINE- ONE BEVERAGE A DAY. STAYS AWAY FROM SPICY FOOD. MOM HAD BREAST CANCER, PARENTS TYPE 2 DIABETES. PARENTS L AND W. HIS SURG- RECTAL ABSCESS 3 YEARS AGO. HAD RECTAL SPECIALIST. NO SX, NO LEAKAGE, NO PAIN IN RECTAL AREA. Constitutional: The patient denied chills, diaphoresis and fatigue. Eyes: The patient complained of vision change but denied blindness, eye discharge and eye foreign body. Ears/Nose/Throat/Neck: The patient denied cerumen, nosebleed and cosmetic deformity. Cardiovascular: The patient denied arrhythmia, chest pain/pressure and claudication. Respiratory: The patient denied asthma, chest congestion and chest tightness. Gastrointestinal: The patient complained of gastroesophageal reflux but denied abdominal pain, anorexia and constipation. Genitourinary/Nephrology: The patient denied anuria/oliguria, breast complaint and dysuria. Musculoskeletal: The patient denied arthralgia(s), back pain and bone fracture. Dermatologic: The patient denied acne, alopecia and cellulitis. Neurologic: The patient denied dizziness, gait abnormality and headache. Psychiatric: The patient denied alcohol abuse, anxiety and conversion/dissociative phenom. Endocrine: The patient complained of obesity but denied chills, diabetes mellitus type 1 and diabetes mellitus type 2. Hematologic/Lymphatic: The patient denied abnormal bleeding and bruising, abnormal ecchymoses and anemia (USED TO WORK OUT, NOT REGULAR ). Allergy/Immunology: The patient denied anaphylactoid reaction, angioedema and food allergy. Vital Signs: data collected on 03/03/2010 09:25:08 AM by Abimbola Jeffers weight is 270 pounds 4.00 ounces clothed height is 6 feet body mass index is 38.77 Kg/m2 sitting heart rate is 68 bpm regular blood pressure at Right Arm while Sitting is 114/76 mmHg PE: Constitutional: GENERAL APPEARANCE: Overall: well nourished, well developed and in no acute distress. Eyes: CONJUNCTIVA/EYELIDS: Overall: conjunctiva clear, cornea clear and eyelids normal; PUPILS AND IRISES: Overall: pupils equal, round, reactive to light and accomodation. Ears/Nose/Throat: EXTERNAL EAR: Overall: normal appearance; EXTERNAL NOSE: Overall: benign appearance, no masses and non-tender; OTOSCOPIC EXAM: Overall: external auditory canals clear and tympanic membranes clear; ORAL CAVITY/PHARYNX/LARYNX: Overall: tonsils benign, oropharyngeal mucosa clear and no masses. Neck: THYROID: Overall: normal size, normal consistency, nontender and no mass lesions. Respiratory: AUSCULTATION: Overall: breath sounds clear bilaterally; RESPIRATORY EFFORT/RHYTHM: Overall: no retractions and normal rate. Cardiovascular: AUSCULTATION OF HEART: Overall: regular rate, regular rhythm, normal heart sounds and no murmurs. Abdomen: ABDOMINAL EXAM: Overall: no tenderness and normal bowel sounds; LIVER AND SPLEEN EXAM: Overall: no hepatosplenomegaly; HERNIA EXAM: Overall: no hernias present. Genitourinary: PENIS: Overall: no lesions, no discharge and appropriate Zack stage of penis; SCROTUM/TESTES: Overall: no masses, non-tender and appropriate Zack stage of testicles. Lymphatic: NECK NODES: Overall: anterior cervical chain benign and posterior cervical chain benign; OTHER NODES: Overall: occipital chain benign, auricular chain benign and supraclavicular chain benign. Musculoskeletal: HEAD AND NECK: Overall: head atraumatic and cervical spine benign; RIGHT LOWER EXTREMITY: Overall: full strength in RLE and normal RLE bulk and tone; LEFT LOWER EXTREMITY: Overall: full strength in LLE and normal LLE bulk and tone. Integument: INSPECTION OF SKIN: Overall: no rash, lesions. Neurologic: DEEP TENDON REFLEXES: Overall: deep tendon reflexes intact; GAIT: Overall: no ataxia, no unsteadiness; COORDINATION: Overall: no tremors; CRANIAL NERVES: Overall: cranial nerves 2-12 intact. Psychiatric: BEHAVIOR/PSYCHOMOTOR ACTIVITY: Overall: no tics, normal psychomotor activity; MOOD AND AFFECT: Overall: normal mood and affect; APPEARANCE: Overall: well-groomed, good eye contact; SPEECH: Overall: normal quality, no aphasia and normal quality, quantity, rate; THOUGHT: Overall: normal form and content; COGNITION/MEMORY: Overall: immediate, recent, remote memory intact and normal concentration, intelligence. Dx: (V70.0) - C - Well adult exam (V72.62) - C - Laboratory exam as part of general physical exam Rx: Bactroban 2 % Ointment, TOP, TID, 10 days, for a total of 45 gm, start on March 03, 2010, end on March 12, 2010. Plan: med as ordered. labs ordered Patient Instructions: None EL SINGER documented in this encounter Plan of Treatment Upcoming Encounters Date Type Department Care Team (Late st Contact Info) Description 04/24/2025 4:30 PM GOSPEL SINGER Office Visit [facility] [address] [place] [address] Killian Miles PA-C [address] [place] [address] documented as of this encounter Visit Diagnoses Not on filedocumented in this encounter Additional Health Concerns Infection Onset Date Last Indicated Resolved Time Rule Out COVID-19 02/03/2022 02/03/2022 02/04/2022 12:00 AM GOSPEL SINGER Influenza 02/03/2022 02/03/2022 02/10/2022 11:4 0 PM GOSPEL SINGER documented as of this encounter Care Teams Bunk Assembler Relationship Specialty Start Date End Date Rhys Antunez MD [address] [place] [address] PCP - General Internal Medicine 12/21/11 05/24/16 Anastacio Garcia MD [address] [place] [address] PCP - General Internal Medicine 05/25/16 03/16/19 [facility] [place] [id number] PCP - Assigned PCP 05/10/16 04/16/18 Killian Miles PA-C [address] [place] [address] PCP - Assigned PCP 04/17/18 05/10/18 Killian Miles PA-C [address] [place] [address] PCP - General Physician Marketing Program Coordinator 03/20/19 Killian Miles PA-C [address] [place] [address] Assigned PCP 04/17/18 Anastacio Garcia [facility] [place] [address] Assigned PCP 05/10/16 04/16/18 Shaq Frank MD [address] [place] [address] Assigned Cancer Care Provider 12/29/19 09/17/20 Dhaval Park PA-C [address] [facility] [address] [place], [place] [id number] Assigned Neuroscience Provider 07/13/21 01/15/23 Yanna Lomeli APRN HOT METAL CHARGER [address] [place] [address], [facility] [address] [place] [address] Assigned Surgical Provider 07/29/23 documented as of this encounter
--- OUTSIDE RECORDS SUMMARY | 2025-01-18 10:44 | XMS_ITS | Encounter Summary ---
Author Organization [place] Address [address] [place] [address] Care Team Providers Care Shipfitter Apprentice Name Role Phone Killian Miles PA-C Unavailable [phone] Killian Miles PA-C Primary Care Provider [phone] Yanna Lomeli APRN [employer] Unavailable [phone] Encounter Details Date Type Department Care Team (Late st Contact Info) Description 03/15/2024 MyC Medical Advice [facility] [address] [place] [address] Lacey Leonardo Social History Tobacco Use Types Packs/Day Years [...] re latives? Once a week 04/17/2023 Attends Gnosticist Services Not on file 04/17 Active Member of Clubs or Organizations Not on f ile 04/17/2023 Attends Club or Organization Meetings Not on kvng e 04/17/2023 Marital Status Not on file 04/17/2023 PHQ-2 Answer Date Recorded PHQ-2 Score 0 07/22/2023 [facility] Occupat [facility] - Occupational Stress [...] in an abandoned building, in an overnight skilled nursing, or couch-surfing.) Yes 04/17/2023 Are you worried [...] on file Legal Sex Male 4:13 AM PLAN CHECKER Gender Identity Not on file Sexual Orientation Not on file Occupation Industry Job Start Date Job End Date Not on file Not on file Not on file Not on file documented as of this encounter Plan of Treatment Upcoming Encounters Date Type Department Care Team (Late st Contact Info) Description 04/24/2025 4:30 PM PLAN CHECKER Office Visit [facility] [address] [address] Killian Miles PA-C [address] [address] documented as of this encounter Visit Diagnoses Not on filedocumented in this encounter Additional Health Concerns Assessment Noted Time PHQ-9 Depression Total Score: 0 05/01/19 18 7:56 AM PLAN CHECKER documented as of this encounter Care Teams Shipfitter Apprentice Relationship Specialty Start Date End Date Killian Miles PA-C [address] [address] PCP - General Physician Promotions Coordinator 03/20/19 Killian Miles PA-C [address] [address] [address] Assigned PCP 04/17/18 Yanna Lomeli APRN PIE TOPPER [address] [place] [address], [facility] [address] [place], [place] [address] Assigned Surgical Provider 07/29/23 documented as of this encounter
--- OUTSIDE RECORDS SUMMARY | 2025-01-18 10:44 | XMS_ITS | Clinical Summary ---
Author Organization [facility] Address [address] [place] [address] Phone Care Team Providers Care Geriatric Assistant Name Role Phone Anastacio Garcia MD Primary Care Provider [phone] Medications acetaminophen (TYLENOL) 325 MG tablet Take 2 tabs by mouth every 4 hours as needed for mild pain 0 08/23/2018 Active omeprazole (PriLOSEC) [address] capsule Take 1 capsule daily 0 08/23/2018 Active hydroCHLOROthia zide (HYDRODIURIL) 25 MG tablet 1 tab daily 1 09/15/2018 Acti ve allopurinol (ZYLOPRIM) 300 MG tablet Take 1 tablet (300 mg total) by mouth 1 (one) time each day 90 tablet 1 04/24/2019 Active Active Problems Problem Noted Date Diagnosed Date Calculus of kidney 08/24/2018 Essential (primary) hypertension 08/24/2018 Obstructive sleep apnea 08/24/2018 Family History Medical History Relation Comments Diabetes mellitus Father Diabetes mellitus Mother Malignant neoplastic disease Mother Obstructive sleep apnea syndrome Mother Heart disease Relative Heart failure Relative Kidney stone Neg Hx Relation Status Comments Father Mother Relative Social History Tobacco Use Types Packs/Day Years Used Date Smoking Tobacco: Never Alcohol Use Standard Drinks/Week Comments Yes 0 (1 standard drink = 0.6 oz pur e alcohol) Sex and Gender Information Value Date Recorded Sex Assigned at Not on file Legal Sex Male 6:13 PM MDT Gender Identity Not on file Sexual Orientation Not on file Last Filed Vital Signs Vital Sign Reading Time Taken Comments Blood Pressure 121/81 08/24/2018 12:01 AM CDT Sitting, Left Pulse 74 08/24/2018 12:01 AM CDT Brachial Temperature 37.1 C (98.7 F) 08/24/2018 12:01 AM CDT Respiratory Rate - - Oxygen Saturation - - Inhaled Oxygen Concentration - - Weight 145 kg (320 lb) 08/24/2018 12:01 AM CDT Height 177.8 cm (5' 10) 08/24/2018 12: 01 AM CDT Body Mass Index 45.92 08/24/2018 12:01 AM CDT Plan of Treatment Health Maintenance Due Date Last Done Comments Influenza Vaccine (#1) 2024 Insurance PM INTERFACED INSURANCE Care Teams Geriatric Assistant Relationship Specialty Start Date End Date Anastacio Garcia MD [address] [place] [address] PCP - General Internal Medicine 04/26/19
--- OUTSIDE RECORDS SUMMARY | 2025-01-18 10:44 | XMS_ITS | Encounter Summary ---
Author Organization [place] Address [address] [place] [address] Care Team Providers Care Director Of Program Management Name Role Phone Rhys Antunez MD Primary Care Provider [phone] Anastacio Garcia MD Primary Care Provider [phone] Anastacio Garcia MD Unavailable [phone] Killian Miles PA-C Unavailable [phone] Killian Miles PA-C Unavailable [phone] Anastacio Garcia MD Unavailable [phone] Killian Miles PA-C Primary Care Provider [phone] Shaq Frank MD Unavailable Dhaval Park PA-C Unavailable [phone] Yanna Lomeli APRN [facility] Unavailable [phone] Encounter Details Date Type Department Care Team (Late st Contact Info) Description 07/14/2008 Clinic Report (Title Lawyer) [address] [phone] Killian Crowley MD NO INFO AVAILABLE 01/09/2022 Social History Tobacco Use Types Packs/Day Years Used Date Smoking Tobacco: Never Assessed Sex and Gender Information Value Date Recorded Sex Assigned at Not on file Legal Sex Male 4:13 AM ADMINISTRATOR SOCIAL WELFARE Gender Identity Not on file Sexual Orientation Not on file documented as of this encounter Progress Notes * Killian Crowley - 01/30/2012 8:51 AM CST CC/HPI: RT HIP FOR LAST MONHT OR SO,DOES WORK OUT FREQUENTLY 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 He presented with hip pain. Right hip pain--Runs 20 miles [place] with increased discomfort. Current Medication: IBU Oral and Oral. ROS: Constitutional: The patient denied chills, diaphoresis and fatigue. Cardiovascular: The patient denied arrhythmia, chest pain/pressure and claudication. Musculoskeletal: The patient complained of arthralgia(s) but denied back pain and bone fracture. Vital Signs: data collected on 07/14/2008 10:57:13 AM by Paula Bolanos weight is 230 pounds clothed temperature is 16.0 F sitting heart rate is 56 bpm radial regular blood pressure at Left Arm while Sitting is 110/62 mmHg PE: Constitutional: GENERAL APPEARANCE: Overall: well nourished and well developed. Ears/Nose/Throat: EXTERNAL EAR: Overall: normal appearance; EXTERNAL NOSE: Overall: benign appearance, no masses and non-tender. Musculoskeletal: SPINE, RIBS AND PELVIS: Inspection - right hip: a normal exam Palpation - right hip: tender at greater trochanter ROM - right hip: a normal exam Stability - right hip: a normal exam Inspection - left hip: a normal exam Palpation - left hip: a normal exam; ROM - left hip: a normal exam. Dx: 719.45 Pain, hip (RIGHT) Rx: None Plan: None Patient Instructions: None documented in this encounter Plan of Treatment Upcoming Encounters Date Type Department Care Team (Late st Contact Info) Description 04/24/2025 4:30 PM ADMINISTRATOR SOCIAL WELFARE Office Visit [facility] [address] [place] [address] Killian Miles PA-C [address] [place] [address] documented as of this encounter Visit Diagnoses Not on filedocumented in this encounter Additional Health Concerns Infection Onset Date Last Indicated Resolved Time Rule Out COVID-19 02/03/2022 02/03/2022 02/04/2022 12:00 AM ADMINISTRATOR SOCIAL WELFARE Influenza 02/03/2022 02/03/2022 02/10/2022 11:4 0 PM ADMINISTRATOR SOCIAL WELFARE documented as of this encounter Care Teams Director Of Program Management Relationship Specialty Start Date End Date Rhys Antunez MD [address] [place] [address] PCP - General Internal Medicine 12/21/11 05/24/16 Anastacio Garcia MD [address] [place] [address] PCP - General Internal Medicine 05/25/16 03/16/19 [place] [address] PCP - Assigned PCP 05/10/16 04/16/18 Killian Miles PA-C [address] [address] PCP - Assigned PCP 04/17/18 05/10/18 Killian Miles PA-C [address] [address] PCP - General Physician Wind Farm Electrical Systems Designer 03/20/19 Killian Miles PA-C [address] [address] Assigned PCP 04/17/18 [place] [address] [place] [address] Assigned PCP 05/10/16 04/16/18 Shaq Frank MD [address] [facility] [address] [place] [address] Assigned Cancer Care Provider 12/29/19 09/17/20 Dhaval Park PA-C [address] [address] Assigned Neuroscience Provider 07/13/21 01/15/23 Yanna Lomeli APRN CISCO CONSULTANT [address] [facility] [address] [place] [address] Assigned Surgical Provider 07/29/23 documented as of this encounter
--- OUTSIDE RECORDS SUMMARY | 2025-01-18 10:44 | XMS_ITS | Encounter Summary ---
Author Organization [facility] Address [address] [place] [address]. [place] [address] Care Team Providers Care Frame Repairer Name Role Phone Killian Miles PA-C Unavailable [phone] Killian Miles PA-C Primary Care Provider Yanna Lomeli APRN DATA LEAD Unavailable [phone] Encounter Details Date Type Department Care Team (Late st Contact Info) Description 07/19/2023 MyC Medical Advice [facility] [address] [place] [address] Killian Miles PA-C [address] [place] [address] Social History Tobacco Use Types Packs/Day Years [...] re latives? Once a week 04/17/2023 Attends [employer] Not on file 04/17 Active Member of Clubs or Organizations Not on f ile 04/17/2023 Attends Club or Organization Meetings Not on kvng e 04/17/2023 Marital Status Not on file 04/17/2023 PHQ-2 Answer Date Recorded PHQ-2 Score 0 07/22/2023 [facility]at [facility] - Occupational Stress Questionnaire Answer Date Recorded [...] Answer Date Recorded Do you have housing? (aKtie g is defined as stable permanent housing and does not include staying outside in a car, in a tent, in an abandoned building, in an overnight assisted, or couch-surfing.) Yes 04/17/2023 Are you worried [...] on file Legal Sex Male 4:13 AM DESKTOP PUBLISHING SPECIALIST Gender Identity Not on file Sexual Orientation Not on file Occupation Industry Job Start Date Job End Date Not on file Not on file Not on file Not on file documented as of this encounter Plan of Treatment Upcoming Encounters Date Type Department Care Team (Late st Contact Info) Description 04/24/2025 4:30 PM DESKTOP PUBLISHING SPECIALIST [facility] [address] [place] [address] Killian Miles PA-C [address] [place] [address] documented as of this encounter Visit Diagnoses Not on filedocumented in this encounter Additional Health Concerns Assessment Noted Time PHQ-9 Depression Total Score: 0 05/01/19 18 7:56 AM DESKTOP PUBLISHING SPECIALIST documented as of this encounter Care Teams Frame Repairer Relationship Specialty Start Date End Date Killian Miles PA-C [address] [place] [address] PCP - General Physician Plastic Sewer 03/20/19 Killian Miles PA-C [address] [place] [address] Assigned PCP 04/17/18 Yanna Lomeli, PNEUMATIC SYSTEMS OPERATOR DATA LEAD [address] [place] [address], [facility] [address] [place] [address] Assigned Surgical Provider 07/29/23 documented as of this encounter
--- OUTSIDE RECORDS SUMMARY | 2025-01-18 10:44 | XMS_ITS | Encounter Summary ---
Author Organization [place] Address [address] [place] [address] Care Team Providers Care Barrel Assembler Name Role Phone Killian Miles PA-C Unavailable [phone] Killian Miles PA-C Primary Care Provider [phone] Dhaval Park PA-C Unavailable Yanna Lomeli APRN [facility] Unavailable [phone] Encounter Details Date Type Department Care Team (Late st Contact Info) Description 04/09/2022 [facility] [address] [address] Dhaval Park PA-C [address] [facility] [address] [place] [address] Social History Tobacco Use Types Packs/Day Years Used Date Smoking Tobacco: Never Smokeless Tobacco: Never Alcohol Use Standard Drinks/Week Comments Yes 0 (1 standard drink = 0.6 oz pur e alcohol) maybe 1-2 x yeear PHQ-2 Answer Date Recorded PHQ-2 Score 0 04/09/2022 Sex and Gender Information Value Date Recorded Sex Assigned at Not on file Legal Sex Male 4:13 AM PROFESSIONAL TUTOR Gender Identity Not on file Sexual Orientation Not on file Occupation Industry Job Start Date Job End Date Not on file Not on file Not on file Not on file COVID-19 Exposure Response Date Recorded In the last 10 days, have yo u been in contact with someone who was confirmed or suspected to have Coronavirus/COVID-19? No / Unsure 04/09/2022 2:40 PM PROFESSIONAL TUTOR documented as of this encounter Plan of Treatment Upcoming Encounters Date Type Department Care Team (Late st Contact Info) Description 04/24/2025 4:30 PM PROFESSIONAL TUTOR Office Visit [facility] [place] [address] [address] Killian Miles PA-C [address] [address] documented as of this encounter Visit Diagnoses Not on filedocumented in this encounter Additional Health Concerns Assessment Noted Time PHQ-9 Depression Total Score: 0 05/01/19 18 7:56 AM PROFESSIONAL TUTOR documented as of this encounter Care Teams Barrel Assembler Relationship Specialty Start Date End Date Killian Miles PA-C [address] [address] PCP - General Physician Courtroom Deputy Or Calendar Clerk 03/20/19 Killian Miles PA-C [address] [address] Assigned PCP 04/17/18 Dhaval Park PA-C [address] [facility] [facility] [address] [place] [id number] Assigned Neuroscience Provider 07/13/21 01/15/23 Yanna Lomeli, BRAILLE DUPLICATING MACHINE OPERATOR ACCOUNT CLASSIFICATION CLERK [address] [place] [address], [facility] [address] [place], [place] [address] Assigned Surgical Provider 07/29/23 documented as of this encounter
--- OUTSIDE RECORDS SUMMARY | 2025-01-18 10:44 | XMS_ITS | Encounter Summary ---
Author Organization [place] Address [address] [place] [address]. [place] [address] Care Team Providers Care Hot Plate Plywood Press Offbearer Name Role Phone Killian Miles PA-C Unavailable [phone] Killian Miles PA-C Primary Care Provider Yanna Lomeli APRN ETL DEVELOPER Unavailable [phone] Reason for Visit * Reason Comments Medication Refill Encounter Details Date Type Department Care Team (Late st Contact Info) Description 01/05/2025 Refill [facility] [address] [place] [address] Killian Miles PA-C [address] [place] [address] Medication Refill Social History Tobacco Use Types [...] friends or re latives? Never 04/16/2024 Attends Worship Services Not on file 04/16 Active Member of Clubs or Organizations Not on f ile 04/16/2024 Attends Club or Organization Meetings Not on kvng e 04/16/2024 Marital Status Not on file 04/16/2024 PHQ-2 Answer Date Recorded PHQ-2 Score 0 04/20/2024 [facility] - Occupational Stress Questionnaire Answer Date Recorded [...] Answer Date Recorded Do you have housing? (Katie daly is defined as stable permanent housing and does not include staying outside in a car, in a tent, in an abandoned building, in an overnight senior living, or couch-surfing.) Yes 04/16/2024 Are you worried [...] on file Legal Sex Male 4:13 AM UI ARCHITECT Gender Identity Not on file Sexual Orientation Not on file Occupation Industry Job Start Date Job End Date Not on file Not on file Not on file Not on file documented as of this encounter Plan of Treatment Upcoming Encounters Date Type Department Care Team (Late st Contact Info) Description 04/24/2025 4:30 PM UI ARCHITECT Office Visit [facility] [place] [address] [place] [address] Killian Miles PA-C [address] [place] [address] documented as of this encounter Visit Diagnoses Diagnosis Morbid obesity (H) Morbid obesity documented in this encounter Additional Health Concerns Assessment Noted Time PHQ-9 Depression Total Score: 0 05/01/19 18 7:56 AM UI ARCHITECT documented as of this encounter Care Teams Hot Plate Plywood Press Offbearer Relationship Specialty Start Date End Date Killian Miles PA-C [address] [place] [address] PCP - General Physician Enterprise Mobility Architect 03/20/19 Killian Miles PA-C [address] [place] [address] Assigned PCP 04/17/18 Yanna Lomeli APRN ETL DEVELOPER [address] [place] [address], [facility] [address] [place] [address] Assigned Surgical Provider 07/29/23 documented as of this encounter
[2025-01-18 10:46] VITALS: BP 119/80; PULSE 83; RESP 18; TEMP 36.6; O2SAT 99
--- NOTE | 2025-01-18 11:01 | CRLHL7_ITS ---
For Patients: As a result of the Century Cures Act, medical imaging exams and procedure reports are released immediately into your electronic medical record. You may view this report before your referring provider. If you have questions, please contact your health care provider. INDICATION: LAZO, NECK PAIN, PUSHED HIMSELF UP IN BED AND HIT HEAD BOARD, HURTING NECK AND HEAD TECHNIQUE: CT head without contrast. COMPARISON: None FINDINGS: CSF spaces: Within normal limits for age. No fluid collections. Ventricles: Commensurate with sulci. No Hydrocephalus. Brain parenchyma: No mass lesion, hemorrhage, or acute infarction. The chavarria-white differentiation is normal. Multifocal areas of decreased attenuation in the white matter are non-specific but consistent with small vessel/ischemic changes. Midline Structures: Normal. No shift. Orbits: Normal. Vessels: Atherosclerotic calcifications. Paranasal sinuses: Mild scattered paranasal sinus mucosal thickening. No air-fluid levels Mastoid sinuses: Normal. Skull base and calvarium: No fractures or significant abnormalities. IMPRESSION: 1. No acute intracranial abnormalities. 2. Mild scattered paranasal sinus mucosal thickening. Please note that all CT scans at this facility use dose modulation, iterative reconstruction, and/or weight-based dosing when appropriate to reduce radiation dose to as low as reasonably achievable. Dictated by Delonte Johnson MD @ 01/18/2025 11:45:23 AM (Electronically Signed)
--- NOTE | 2025-01-18 11:02 | CRLHL7_ITS ---
For Patients: As a result of the Century Cures Act, medical imaging exams and procedure reports are released immediately into your electronic medical record. You may view this report before your referring provider. If you have questions, please contact your health care provider. INDICATION: Headache, neck pain. TECHNIQUE: CTA head using intravenous contrast with bolus tracking, 3D angiographic rendering using maximum intensity projection (MIP) and images permanently archived. CTA neck using intravenous contrast with bolus tracking, 3D angiographic rendering using maximum intensity projection (MIP) and images permanently archived. FINDINGS: CTA head: There is normal opacification of the intracranial vasculature. There is no large vessel occlusion or significant intracranial stenosis. No aneurysm is identified. CTA neck: There is no significant carotid artery stenosis or dissection. There is no significant vertebral artery stenosis or dissection. IMPRESSION: Unremarkable head CTA. Unremarkable neck CTA. Please note that all CT scans at this facility use dose modulation, iterative reconstruction, and/or weight-based dosing when appropriate to reduce radiation dose to as low as reasonably achievable. Dictated by Pal Witt MD @ 01/19/2025 6:05:29 AM (Electronically Signed)
--- NOTE | 2025-01-18 11:03 | ED.GENADULT ---
HPI - General Adult General Date Seen: 01/18/25 Chief complaint: Neck Injury/Pain Stated complaint: Neck pain, nausea Time Seen by Provider: 01/18/25 10:47 History of Present Illness HPI narrative: Patient is a 39-year-old man here with his for evaluation of neck pain and headache. He tells me that for the past year so he has been having episodes at night where he will break out in a sweat and have muscle spasms. He says last night around 10:00 p.m. he woke up and found that he had rammed his head into the headboard and his neck was chocked off to the side. Since then he has had pain in his left neck associated with a headache on the top of his head and some nausea. He has not had any difficulty with coordination, speech, strength. No vomiting. No other injuries or complaints. Has not taken any medications at home. Related Data Home Medications ?Medication ?Instructions ?Recorded ?Confirmed omeprazole 20 mg capsule,delayed 20 mg PO QDAY 09/07/21 01/18/25 release tirzepatide (weight loss) 10 mg subcut 01/18/25 mg/0.5 mL subcutaneous pen injector (Zepbound) Allergies Allergy/AdvReac Type Severity Reaction Status Date / Time No Known Drug Allergies Allergy Verified 01/18/25 11:40 Review of Systems Status of ROS: Reports: 6 or more systems reviewed and unremarkable except as noted in History and below Exam Narrative: Exam Narrative: Vital signs reviewed In general, an alert, nontoxic mid aged man. Head: Normocephalic, atraumatic. No hematoma, contusion, abrasion. Eyes: Sclera clear. Pupils equal and reactive. Extraocular movements are full. ENT: Mucous membranes moist. Neck: Some tenderness in the left paracervical area primarily, no significant tenderness in the midline spine. No palpable muscle spasm. Heart: Regular rate and rhythm without murmur. Lungs: Clear. No increased work of breathing, crackles or wheezes. Abdomen: Soft, nontender to palpation. Extremities: Well perfused, pulses intact. No significant edema. Neurologic: Alert, conversant. Speech fluent, face symmetric. Moves all extremities equally. Cerebellar function is intact by finger-nose testing. Skin: Warm, dry well perfused. Affect: Flat. Const: Vital Signs, click to edit/add: Vital Signs - 24 hr 11/13/25 10:46 Temperature 98 F Pulse Rate [Right Pulse Oximeter] 83 Respiratory Rate 18 Blood Pressure [Ri ght Upper Arm] 119/80 Pulse Oximetry 99 Oxygen Delivery Me thod Room Air Course Course ED Course: Patient presents with headache and left-sided neck pain after minor trauma. Diagnostic considerations would include musculoskeletal pain, torticollis, concussion, dissection, among others. He does request medication here, will try some Toradol and Zofran to start. Will get a CT and CTA to evaluate for any vascular injury, would doubt fracture based on mechanism. Head CT, CT angiogram of the head and neck discussed with the radiologist who reports that they are normal with the exception of a small left vertebral artery or a variant which ends in the PICA. This is incidental. Symptoms are likely musculoskeletal, muscle spasm. Reviewed with patient, recommended ibuprofen 400+ Tylenol 1000 3 times daily for the next few days, heat, primary care follow-up if not improving. Return at any time for acute worsening such as radicular pain, weakness, fevers etcetera. Vital Signs Vital signs: Initial Vital Signs Temperature 98 F 01/18/25 10:46 Temperature Source Temporal Artery Scan 01/18/25 10:46 Pulse Rate 83 01/18/25 10:46 Pulse Rhythm Regular 01/18/25 10:46 Pulse Strength 3+ Normal 01/18/25 10:46 Respiratory Rate 18 01/18/25 10:46 Blood Pressure 119/80 01/18/25 10:46 Blood Pressure Mean 93 01/18/25 10:46 Blood Pressure Position Sitting 01/18/25 10:46 Pulse Oximetry 99 01/18/25 10:46 Oxygen Delivery Method Room Air 01/18/25 10:46 Vital Signs Temperature 98 F 01/18/25 10:46 Pulse Rate 83 01/18/25 10:46 Respiratory Rate 18 01/18/25 10:46 Blood Pressure 119/80 01/18/25 10:46 Pulse Oximetry 99 01/18/25 10:46 Oxygen Delivery Method Room Air 01/18/25 10:46 Temperature 98 F 01/18/25 10:46 Pulse Rate 83 01/18/25 10:46 Respiratory Rate 18 01/18/25 10:46 Blood Pressure 119/80 01/18/25 10:46 Pulse Oximetry 99 01/18/25 10:46 Oxygen Delivery Method Room Air 01/18/25 10:46 Medications Administered Medications: Discontinued Medications Generic Name Dose Route Start Last Admin Trade Name Carlos PRN Reason Stop Dose Admin Ketorolac Tromethamine 15 mg 01/18/25 11:01 01/18/25 11:14 Ketorolac 15 Mg/Ml Inj IVP 01/18/25 11:02 15 mg ONCE ONE Administration Ondansetron HCl 4 mg 01/18/25 11:01 01/18/25 11:14 Ondansetron 2 Mg/Ml Inj IVP 01/18/25 11:02 4 mg ONCE ONE Administration Medical Decision Making Imaging Data CT head, CTA head and neck: Attestation: I have reviewed the pertinent imaging results. Radiologist's impression: Patient: Yoni Beebe MR#: [id number] : 1985 Acct:[id number] Loc: ED Service Date: 01/18/[address]: Ordering Physician: Jacqueline Hernandez M.D. Date of Service: 01/18/25 Procedure(s): CT head/brain wo con Accession Number(s): [id number] cc: Jacqueline Hernandez M.D.; Provider,Not a Local~ For Patients: As a result of the Century Cures Act, medical imaging exams and procedure reports are released immediately into your electronic medical record. You may view this report before your referring provider. If you have questions, please contact your health care provider. INDICATION: LAZO, NECK PAIN, PUSHED HIMSELF UP IN BED AND HIT HEAD BOARD, HURTING NECK AND HEAD TECHNIQUE: CT head without contrast. COMPARISON: None FINDINGS: CSF spaces: Within normal limits for age. No fluid collections. Ventricles: Commensurate with sulci. No Hydrocephalus. Brain parenchyma: No mass lesion, hemorrhage, or acute infarction. The chavarria-white differentiation is normal. Multifocal areas of decreased attenuation in the white matter are non-specific but consistent with small vessel/ischemic changes. Midline Structures: Normal. No shift. Orbits: Normal. Vessels: Atherosclerotic calcifications. Paranasal sinuses: Mild scattered paranasal sinus mucosal thickening. No air-fluid levels Mastoid sinuses: Normal. Skull base and calvarium: No fractures or significant abnormalities. IMPRESSION: 1. No acute intracranial abnormalities. 2. Mild scattered paranasal sinus mucosal thickening. Please note that all CT scans at this facility use dose modulation, iterative reconstruction, and/or weight-based dosing when appropriate to reduce radiation dose to as low as reasonably achievable. Dictated by Delonte Johnson MD @ 01/18/2025 11:45:23 AM Patient: YONI BEEBE Facility: [facility] RIS Site . Site : 1985 Study: CT-Neck Angio Angio 95CC ISOVUE 370 NON ACUTE-01/18/2025 11:40:06 AM Ordering Physician: Jorge Phillips Preliminary Report: Negative study. 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 Findings called to Dr. Jacqueline hernandez at 11:53 [place] FORMER ARB[facility] END. Read by: Delonte Johnson MD @01/18/2025 11:56:29 AM Discharge Plan Discharge Clinical Impression: Strain of neck muscle Patient Disposition: Home, Self-Care Condition: Stable Instructions: Cervical Sprain (ED) Additional Instructions: I would recommend that you take ibuprofen 400 mg plus Tylenol 1000 mg 3 times daily for the next couple of days. You can use heat on your neck as well. I have prescribed a muscle relaxer a few needed particularly at night. Your CT scans do not show any evidence of injury to your head or neck, and your symptoms are likely related to muscle spasm. If you are not improving over the next week or so, follow-up with primary care. Return to the ER at any time if you have significant worsening symptoms. Prescriptions: No Action omeprazole 20 mg capsule,delayed release(DR/EC) 20 mg PO QDAY Zepbound 10 mg/0.5 mL pen injector SUBCUT Patient Comments: [NO ORIGINAL SIG] Follow Up/Referrals: Provider,Not a Local [Primary Care Provider, Family Practice] Stand Alone Forms: Exposed Vocalsealth Info Instructions
[2025-01-18] MEDS: ONDANSETRON 2 MG/ML inj 4 MG IVP (11:14)
== END 2025-01-18 13:50 | disposition home or self-care (01) ==
PROVIDERS: Emergency Provider Emergency Medicine
DX: S16.1XXA Strain of muscle, fascia and tendon at neck level, initial encounter (principal); R51.9 Headache, unspecified; R11.0 Nausea
CPT/HCPCS: 70450; 70496; 70498; 96374; 96375; 99284; 99285; J1885; J2405; Q9967